=== PATIENT | male | born 1990 | race African-American/Black ===

== ENCOUNTER 2020-04-07 10:39 | Emergency (ER) | payer SELFPAY ==
[~2020-04-07] VITALS: Ht 190.5 cm; Wt 117.9 kg
[2020-04-07 10:55] VITALS: Ht 190.5 cm; Wt 117.9 kg
[2020-04-07 11:34] VITALS: BP 182/105
== END 2020-04-07 11:34 | disposition home or self-care (01) ==
LOC: ED 10:39
DX: S61.412A Laceration without foreign body of left hand, initial encounter (principal); W26.0XXA Contact with knife, initial encounter; Y93.89 Activity, other specified; Y92.89 Other specified places as the place of occurrence of the external cause; Y99.8 Other external cause status

== ENCOUNTER → 2020-04-07 | Emergency (ER) | payer OTHER | LOC: ED 10:39 | DX: Z02.89 Encounter for other administrative examinations (principal) ==